=== PATIENT | male | born 1985 | race Caucasian/White ===

== ENCOUNTER 2025-09-15 21:11 | Emergency (ER) | payer OTHER ==
[~2025-09-15] VITALS: Ht 172.7 cm; Wt 104.5 kg
[2025-09-15 21:40] LABS: APPEARANCE,URINE CLEAR (CLEAR); GLUCOSE, URINE (UA) NEGATIVE (NEGATIVE); LEUKOCYTE ESTERASE ,URINE NEGATIVE (NEGATIVE); NITRATE,URINE NEGATIVE (NEGATIVE); OCCULT BLOOD,URINE NEGATIVE (NEGATIVE); SPECIFIC GRAVITIY, URINE 1.039 (1.003-1.030)
[2025-09-15 21:48] LABS: SQUAMOUS EPITHELIAL CELL,UR Rare /LPF (None Seen)
[2025-09-15 22:16] LABS: COVID AG,FIA SOURCE NASAL SWAB
[2025-09-15 22:45] LABS: SARS-COV2 (COVID) ANTIGEN,FIA Negative (Negative)
[2025-09-15 22:46] LABS: INFLUENZA TYPE A NEGATIVE FOR TYPE A (NEGATIVE); INFLUENZA TYPE B NEGATIVE FOR TYPE B (NEGATIVE)
[2025-09-16] MEDS ORDERED: BENZ-227 PO (01:27)
[2025-09-16] MEDS ORDERED: AZIT250T9 PO (01:27)
[2025-09-16 01:45] VITALS: BP 119/73; PULSE 67; RESP 18; TEMP 97.3; O2SAT 100
== END 2025-09-16 03:19 | disposition home or self-care (01) ==
LOC: EMS 21:11
DX: J18.9 Pneumonia, unspecified organism (principal); Z20.822 Contact with and (suspected) exposure to COVID-19
CPT/HCPCS: 81001; 87804; 99283